=== PATIENT | female | born 1980 | race Caucasian/White ===

== ENCOUNTER 2017-07-12 10:45 | Emergency (ER) | payer OTHER ==
[~2017-07-12] VITALS: Ht 154.9 cm; Wt 76.6 kg
[~2017-07-12 10:45] MED LIST: RITA30CA PO
[2017-07-12 10:52] VITALS: BP 136/74; PULSE 57; RESP 16; TEMP 98.1; O2SAT 97
[2017-07-12] MEDS ORDERED: SUPPLEMENTS (12:02)
--- NOTE | 2017-07-12 12:15 | PD ---
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 Cramping is more lower abdomen. Said it was spotting yesterday and then she passed something and started having more vaginal bleeding. Denies any fever, chest pain, sob, n/v, dysuria, hematuria. Clear vaginal discharge. Pt went to meet her new OBGYN 2 weeks ago and had bedside US that showed a sac in the uterus but nothing else. PFSH Past Medical History Medical History: Denies Significant Hx Influenza Vaccination: No ?: LMP: 05/09/17 Miscarriage: 1 Past Surgical History Surgical History: No Previous Surgery Social History Alcohol Use: No Tobacco Use: No Allergies-Medications (Allergen,Severity, Reaction): Coded Allergies: ciprofloxacin (Verified Allergy, Unknown, rash, muscle aches, 07/12/17) formaldehyde (Verified Allergy, Unknown, rash, 07/12/17) mold (Verified Allergy, Unknown, itching, hives, 07/12/17) nickel (Verified Allergy, Unknown, rash, 07/12/17) Reported Meds & Prescriptions Reported Meds & Active Scripts Active Reported [Supplements] 0 Review of Systems Except as stated in HPI: all other systems reviewed are Neg Physical Exam Narrative GENERAL: 37yo F not in distress. SKIN: Focused skin assessment warm/dry. HEAD: Atraumatic. Normocephalic. CARDIOVASCULAR: Regular rate and rhythm. No murmur appreciated. RESPIRATORY: No accessory muscle use. Clear to auscultation. Breath sounds equal bilaterally. GASTROINTESTINAL: Abdomen soft, non-tender, nondistended. No rebound tenderness or guarding. PELVIC: MUSCULOSKELETAL: No obvious deformities. No clubbing. No cyanosis. No edema. NEUROLOGICAL: Awake and alert. No obvious cranial nerve deficits. Motor grossly within normal limits. Normal speech. PSYCHIATRIC: Appropriate mood and affect; insight and judgment normal. Data Data Last Documented VS Vital Signs Date Time Temp Pulse Resp B/P (MAP) Pulse Ox O2 Delivery O2 Flow Rate FiO2 07/12/17 16:13 07/12/17 15:03 73 18 99 07/12/17 10:52 98.1 Orders Orders Complete Blood Count With Diff (07/12/17 12:08) Beta Hcg (Quant/Titer) (07/12/17 12:08) Basic Metabolic Panel (Bmp) (07/12/17 12:08) Gc And Chlamydia Pcr (07/12/17 12:08) Type And Screen (07/12/17 12:08) Wet Prep Profile (07/12/17 12:08) Urinalysis - C+S If Indicated (07/12/17 12:08) Ed Poc Ultrasound (07/12/17 ) Us Pelvis Preg W Transvaginal (07/12/17 ) Ed Discharge Order (07/12/17 15:33) Labs Laboratory Tests Test 07/12/17 12:43 White Blood Count 9.2 TH/MM3 Red Blood Count 4.76 MIL/MM3 Hemoglobin 13.6 GM/DL Hematocrit 41.1 % Mean Corpuscular Volume 86.3 FL Mean Corpuscular Hemoglobin 28.6 PG Mean Corpuscular Hemoglobin Concent 33.1 % Red Cell Distribution Width 12.7 % Platelet Count 289 TH/MM3 Mean Platelet Volume 8.4 FL Neutrophils (%) (Auto) 68.4 % Lymphocytes (%) (Auto) 23.1 % Monocytes (%) (Auto) 2.9 % Eosinophils (%) (Auto) 4.7 % Basophils (%) (Auto) 0.9 % Neutrophils # (Auto) 6.3 TH/MM3 Lymphocytes # (Auto) 2.1 TH/MM3 Monocytes # (Auto) 0.3 TH/MM3 Eosinophils # (Auto) 0.4 TH/MM3 Basophils # (Auto) 0.1 TH/MM3 CBC Comment DIFF FINAL Differential Comment Urine Collection Type CLEAN CATCH Urine Color YELLOW Urine Turbidity CLOUDY Urine pH 5.0 Urine Specific [place] GREATER/EQUAL 1.030 Urine Protein TRACE mg/dL Urine Glucose (UA) NEG mg/dL Urine Ketones NEG mg/dL Urine Occult Blood LARGE Urine Nitrite NEG Urine Bilirubin NEG Urine Urobilinogen 0.2 MG/DL Urine Leukocyte Esterase NEG Urine RBC INNUM /hpf Urine WBC 0-2 /hpf Microscopic Urinalysis Comment CULT NOT INDICATED Clue Cells (Wet Prep) NONE SEEN Vaginal Trichomonas (Wet Prep) NONE SEEN Vaginal Yeast (Wet Prep) NONE SEEN Blood Urea Nitrogen 11 MG/DL Creatinine 0.78 MG/DL Random Glucose 92 MG/DL Calcium Level 9.0 MG/DL Sodium Level 139 MEQ/L Potassium Level 3.7 MEQ/L Chloride Level 108 MEQ/L Carbon Dioxide Level 21.7 MEQ/L Anion Gap 9 MEQ/L Estimat Glomerular Filtration Rate 83 ML/MIN Human Chorionic Gonadotropin, Quant 23399 MIU/ML Chlamydia trachomatis DNA (PCR) NOT DETECTED Neisseria gonorrhoeae DNA (PCR) NOT DETECTED MDM Medical Decision Making Medical Screen Exam Complete: Yes Emergency Medical Condition: Yes Differential Diagnosis Threatened vs. complete vs. ectopic Narrative Course 37yo F who is 9 weeks here with lower abdominal cramping and vaginal bleeding. Labs reviewed, no leukocytosis. H/[place] [address]. Pt said her bHCG was in the 30,000 2 weeks ago. UA showed large blood. WBC 0-2. Wet prep negative. Type and screen is pending but pt said she is O+ so no rhogam needed. US showed no IUP. An ectopic is not excluded. 1.6cm complex cystic area at the right adnexa. Discussed with OB hospitalist Dr. Siddiqui who also thinks it is likely a miscarriage but pt needs to have a repeat bHCG in 2 days. Pt has no abdominal pain now. Return precautions given. Procedures Procedure Narrative Emergency Department Pelvic ultrasound was performed with patient consent. The curvilinear probe was used in the transverse and sagittal views within the suprapubic region revealing no intrauterine . Will obtain official US. Diagnosis Primary Impression: Vaginal bleeding Patient Instructions: General Instructions Departure Forms: Tests/Procedures Additional Instructions: Please follow up with OBGYN in 2 days for repeat bHCG. Return to the ED if symptoms worsen. Med/Other Pt SpecificInfo: No Change to Meds Disposition: 01 DISCHARGE HOME Condition: Stable Janet Vargas Jul 12, 2017 12:15
[2017-07-12 12:52] LABS: AUTOMATED NEUTROPHIL # 6.3 TH/MM3 (1.8-7.7); BASOPHIL # 0.1 TH/MM3 (0-0.2); BASOPHIL % 0.9 % (0.0-2.0); EOSINOPHIL # 0.4 TH/MM3 (0-0.4); EOSINOPHIL % 4.7 % (0.0-4.0); HEMATOCRIT 41.1 % (35.0-46.0); HEMOGLOBIN 13.6 GM/DL (11.6-15.3); LYMPH % 23.1 % (9.0-44.0); LYMPHOCYTE # 2.1 TH/MM3 (1.0-4.8); MEAN CELL VOLUME 86.3 FL (80.0-100.0); MEAN CORPUSCULAR HEMOGLOBIN 28.6 PG (27.0-34.0); MEAN CORPUSCULAR HGB CONC 33.1 % (32.0-36.0); MEAN PLATELET VOLUME 8.4 FL (7.0-11.0); MONO % 2.9 % (0.0-8.0); MONOCYTE # 0.3 TH/MM3 (0-0.9); NEUT % 68.4 % (16.0-70.0); PLATELET COUNT 289 TH/MM3 (150-450); RED BLOOD COUNT 4.76 MIL/MM3 (4.00-5.30); RED CELL DISTRIBUTION WIDTH 12.7 % (11.6-17.2); WHITE BLOOD COUNT 9.2 TH/MM3 (4.0-11.0)
[2017-07-12 12:54] LABS: BLOOD, URINE LARGE (NEG); GLUCOSE,URINE NEG (NEG); KETONE, URINE NEG (NEG); NITRITE,URINE NEG (NEG); URINE COLOR YELLOW (YELLW/STRAW); URINE LEUKOCYTE ESTERASE NEG (NEG)
[2017-07-12 12:58] LABS: BILIRUBIN, URINE NEG (NEG)
[2017-07-12 12:59] LABS: RBC, URINE INNUM /hpf (0-3); WBC, URINE 0-2 /hpf (0-5)
[2017-07-12 13:12] LABS: BICARBONATE 21.7 MEQ/L (21.0-32.0)
[2017-07-12 13:15] LABS: CREATININE 0.78 MG/DL (0.50-1.00)
--- NOTE | 2017-07-12 14:48 | RADRPT ---
EXAM DATE/TIME: 07/12/2017 14:06 [facility] COMPARISON: No previous studies available for comparison. INDICATIONS : Pelvic pain and bleeding with . LAB(S): Beta-hC MEDICAL HISTORY : . Miscarriage x 1. ADHD. SURGICAL HISTORY : Tonsillectomy. Cholecystectomy. Appendectomy. Rhinoplasty. Sinoplasty. Breast reduction. ENCOUNTER: Initial ACUITY: 1 day PAIN SCORE: 5/10 LOCATION: Bilateral pelvis MEASUREMENTS: UTERUS: 10.4 x 5.1 x 3.8 cm ENDOMETRIAL STRIPE: 9 mm RIGHT OVARY: 2.6 x 2.3 x 1.7 cm LEFT OVARY: 3.6 x 2.2 x 2.0 cm FREE FLUID: No CROWN RUMP LENGTH: Non visualized. FHR: Non visualized. FINDINGS: UTERUS: The myometrium has homogeneous echotexture without mass. An IUP is not seen. RIGHT OVARY: There is a 1.6 cm complex mildly hypoechoic cystic area seen at the right ovary. LEFT OVARY: Ovary contains no mass or significant cystic lesion. MISCELLANEOUS: No free fluid. CONCLUSION: 1. No IUP seen. An ectopic is not excluded. 2. 1.6 cm complex cystic area at the right adnexa. This could be related to a corpus luteal cyst. An ectopic cannot be excluded. Given the lack of an IUP, close followup and clinical correlation is cindy mmended. Lukas Osorio MD on July 12, 2017 at 14:40 Board Certified Radiologist. This report was verified electronically.
[2017-07-12 15:03] VITALS: BP 100/65; PULSE 73; RESP 18; O2SAT 99
== END 2017-07-12 16:15 | disposition home or self-care (01) ==
LOC: PHED 10:45
DX: O46.91 Antepartum hemorrhage, unspecified, first trimester (principal); O34.81 Maternal care for other abnormalities of pelvic organs, first trimester; N83.201 Unspecified ovarian cyst, right side; Z3A.09 9 weeks gestation of pregnancy; Z88.1 Allergy status to other antibiotic agents; Z34.91 Encounter for supervision of normal pregnancy, unspecified, first trimester
CPT/HCPCS: 76801; 76817; 80048; 81001; 84702; 85025; 86850; 86900; 86901; 87210; 87491; 87591; 99284